=== PATIENT | female | born 1990 | race Caucasian/White ===

== ENCOUNTER 2020-08-10 23:46 | Emergency (ER) | payer SELFPAY ==
[~2020-08-10] VITALS: Ht 162.6 cm; Wt 56.8 kg
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
--- NOTE | 2020-08-11 01:59 | REPVR ---
PROCEDURE INFORMATION: Exam: CT Cervical Spine Without Contrast Exam date and time: 08/11/2020 12:09 AM Age: 30 years old Clinical indication: Neck pain; Additional info: [facility] TECHNIQUE: Imaging protocol: Computed tomography images of the cervical spine without contrast. Radiation optimization: All CT scans at this facility use at least one of these dose optimization techniques: automated exposure control; mA and/or kV adjustment per patient size (includes targeted exams where dose is matched to clinical indication); or iterative reconstruction. COMPARISON: No relevant prior studies available. FINDINGS: There is reversal of cervical lordosis. Cervical vertebral body heights and posterior cervical alignment are maintained. Prevertebral soft tissues are within normal limits. The atlantodental interval is maintained. Facet joints are not subluxed or dislocated. No acute fracture of the cervical spine is seen. Mild appearing degenerative changes of the cervical spine are noted. No significant appearing osseous compromise to the central canal or neural foramina is seen at any level. If there are neurologic symptoms, consider further evaluation by MRI. Mild pleural thickening and parenchymal scarring is seen at the visualized lung apices. There is a 1.6 cm right posterior gas containing tracheal diverticulum noted. Slight heterogeneity of the thyroid gland could be correlated for any history of thyroiditis. Mild prominence of the adenoids and tonsils could be followed up clinically for any significance. Multiple small rounded cervical lymph nodes are seen bilaterally, not obviously pathologic by size criteria, however numerous lymph nodes are seen, for which clinical correlation and follow-up is advised to exclude any progression. IMPRESSION: No acute fracture of the cervical spine. Other findings discussed above. Electronically signed by: Noah Cantu On 08/11/2020 01:58:16 AM
[2020-08-11 03:45] VITALS: BP 123/56
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
== END 2020-08-11 04:28 | disposition home or self-care (01) ==
LOC: M ED 23:46
DX: T76.11XA Adult physical abuse, suspected, initial encounter (principal); Y04.8XXA Assault by other bodily force, initial encounter; Y99.8 Other external cause status; R68.84 Jaw pain; K02.9 Dental caries, unspecified; F17.200 Nicotine dependence, unspecified, uncomplicated